=== PATIENT | male | born 1960 | race Caucasian/White ===

== ENCOUNTER 2024-07-24 09:19 | Emergency (ER) | payer MEDICAID ==
[~2024-07-24] VITALS: Ht 175.3 cm; Wt 65.9 kg
[~2024-07-24 09:19] MED LIST: NO HOME MEDS
--- NOTE | 2024-07-24 09:32 | Physician Documentation ---
History of Present Illness ~ Chief Complaint: Neck pain Stated Complaint: NECK/SHOULDER PAIN,TINGLING Time Seen by MD: 09:22 OK to notify your PCP?: Yes Primary Medical Doctor: vinicius Source: patient Mode of Arrival: POV Exam Limitations: no limitations HPI 63-year-old male with chief complaint left-sided neck pain which is worse when he looks to the left in his better when he massages his left shoulder left upper neck back area. He denies any history of injuries to his neck states he did break his left collar bone years ago but no injuries to his cervical spine. He denies any changes in his activity level prior to this. No pre arrival treatment. He describes the pain as pins and needles sensation. The pins and needle sensation radiates into the left arm. He denies chest pain, shortness of breath, clumsiness of his extremities or weakness. Medication Reconciliation Allergies: Coded Allergies: codeine (Verified Allergy, Unknown, 05/01/15) Scheduled Cyclobenzaprine* (Cyclobenzaprine*), 1 TAB PO HS Miscellaneous Medications Home Med List (No Home Medications), (Reported) Past Medical History Past Medical History: No Pertinent History Past Surgical History: no surgical history Drug Use: none Lives with: Spouse Lives In: Home Review of Systems All Other Systems at this time: Reviewed and Negative Physical Exam Vital Signs: Temperature: 98.0, Source: Temporal, Heart Rate: 71, Respiratory Rate: 16, BP: 125/91, Pulse Oximetry: 97, Weight: 65.900 Oxygen Flow Rate: 0 Physical Exam General Appearance: Alert, WD/WN. NAD. HEENT: NCAT, PERRL, EOMI. Neck: Supple, trachea midline. Cardiovascular: RRR. No m/r/g. Lungs: CTAB. Breathing unlabored Extremities: Normal inspection. No edema. Musculoskeletal: Tenderness over left paraspinal muscles of cervical spine, left SCM muscle, left trapezius muscle. No midline tenderness over spinous processes, active range motion of C-spine is reduced with looking to laterally due to pain on the left side of his neck. No tenderness over the left shoulder joint. Skin: Warm/dry, normal color Neurological: Alert and oriented x4, normal gait. Psychiatric: Affect congruent with mood. Progress Results/Orders Results/Orders Orders - STEFANO OLMEDO [facility] (07/24/24 09:27) Completed Orders - STEFANO OLMEDO [facility] (07/24/24 09:27) Vital Signs 07/24/24 07/24/24 09:21 10:55 Temp 98.0 98.0 Pulse 71 74 Resp 16 17 B/P (MAP) 125/91 128/59 Pulse Ox 97 97 O2 Flow Rate 0 Medical Decision Making Differential Dx:Considerations: Include: Cervical muscle spasm, Discitis, DJD, Meningitis, Thyroiditis, Torticollis, Vertebral artery dissect., Other Additional Comment Patient's pain is worse with particular movements and better with direct pressure to the muscles of the left side of the cervical spine and upper back area this coincides with a musculoskeletal problem. Patient had no precipitating injury and that is I figured that this was more of a degenerative situation or muscle spasm. I still ordered an x-ray of his cervical spine. I d id not feel it was necessary to pursue advanced imaging in the emergency room given the lack of radicular symptoms. Departure Time of Disposition: 10:48 Disposition: 01 HOME / SELF CARE / HOMELESS Impression: Primary Impression: Torticollis Additional Impression: Neck pain Condition: Stable Discharge Instructions: Acute Torticollis, Adult Additional Instructions: F/U WITH PCP WITHIN THE NEXT WEEK FINDINGS ON EXAM AND WITH YOUR HISTORY ARE CONSISTENT WITH MUSCLE SPASM RECOMMEND MUSCLE RELAXER, PHYSICAL THERAPY, TYLENOL AND/OR MOTRIN COPY OF CPSINE XRAY BELOW FINDINGS: VERTEBRAE: Mild reversal cervical spine lordosis. Degenerative facet arthropathy throughout the cervical spine. Normal alignment. No acute fracture. DISC SPACES: Degenerative disc disease throughout the cervical spine. SOFT TISSUES: Unremarkable. Referrals: NO PRIMARY CARE PROVIDER (PCP) Prescriptions Cyclobenzaprine* (Cyclobenzaprine*) 10 Mg Tablet 1 TAB PO HS for muscle spasms for 7 Days, #7 TAB 0 Refills Prov: STEFANO OLMEDO 07/24/24 Education Educated: Patient Educated regarding: diagnosis, treatment, need for follow up Signature Scribe Signature: X Attestation: STEFANO GARCIA Jul 24, 2024 09:32
--- NOTE | 2024-07-24 10:24 | RADIOLOGY REPORT ---
EXAM: XR Cervical Spine, 2 or 3 Views CLINICAL INDICATION: neck pain radiating into left shoulder TECHNIQUE: Frontal and lateral views of the cervical spine. COMPARISON: None FINDINGS: VERTEBRAE: Mild reversal cervical spine lordosis. Degenerative facet arthropathy throughout the ce rvical spine. Normal alignment. No acute fracture. DISC SPACES: Degenerative disc disease throughout the cervical spine. SOFT TISSUES: Unremarkable. OTHER FINDINGS: . IMPRESSION: 1. No acute fracture. 2. If symptoms persist, further evaluation with MRI is recommended. 3. Degenerative changes of the cervical spine as described.
[2024-07-24] MEDS ORDERED: CYCL-1 PO (10:48)
[2024-07-24 10:55] VITALS: BP 128/59; PULSE 74; RESP 17; TEMP 98; O2SAT 97
== END 2024-07-24 10:54 | disposition home or self-care (01) ==
LOC: ER 09:21
DX: M43.6 Torticollis (principal); M25.512 Pain in left shoulder; Z88.5 Allergy status to narcotic agent; Z79.899 Other long term (current) drug therapy
CPT/HCPCS: 72040; 99283

== ENCOUNTER 2024-07-29 15:54 | Inpatient (IN) | payer MEDICAID ==
[~2024-07-29] VITALS: Ht 175.3 cm; Wt 66.9 kg
[~2024-07-29 15:54] MED LIST changes: +CYCL-1 PO
[2024-07-29 15:59] VITALS: TEMP 98.1
--- NOTE | 2024-07-29 16:17 | Physician Documentation ---
History of Present Illness ~ Chief Complaint: Stroke Alert Stated Complaint: NUMBNESS Time Seen by MD: 17:10 Primary Medical Doctor: vinicius Source: patient HPI 63-year-old male presents to the emergency department complaining of left-sided upper and lower extremity weakness, patient states that his arm feels heavy as this his leg, symptoms started approximately six days ago, patient was seen in the emergency department this past week and diagnosed with a strain of his cervical spine and started on cyclobenzaprine however this did not improve his symptoms. Patient was seen by his primary care provider today and sent back to the ER for a stroke evaluation. Timing / Duration: days Onset: spontaneous Symptoms: weakness, numbness; Denies: slurred speech, difficulty talking History of: no pertinent history Weakness Location: none Associated Symptoms: denies symptoms Medication Reconciliation Allergies: Coded Allergies: codeine (Verified Allergy, Unknown, 05/01/15) Scheduled Hydroxyzine Hcl* (Atarax*), 1 TAB PO BID, (Reported) Oxcarbazepine (Oxcarbazepine), 1 TAB PO BID, (Reported) Miscellaneous Medications Home Med List (No Home Medications), (Reported) Discontinued Medications Cyclobenzaprine* (Cyclobenzaprine*), 1 TAB PO HS Discontinued Reason: patient no longer taking Past Medical History Past Medical History: No Pertinent History Past Surgical History: no surgical history Drug Use: none Lives with: Spouse Lives In: Home Review of Systems Constitutional: Reports: see HPI Neurological: Reports: see HPI, left sided weakness Physical Exam Vital Signs: RN Vital Signs have been reviewed: Yes, Temperature: 98.1, Source: Oral, Heart Rate: 82, Respiratory Rate: 16, BP: 126/85, Pulse Oximetry: 92, Weight: 66.900 Oxygen Flow Rate: 0 General Appearance: alert, WD/WN, no apparent distress Pupils/EOM/Fundus: PERRLA, EOM intact Neck: normal inspection, full range of motion, supple, tender lateral; No: non- tender Respiratory: lungs clear, normal breath sounds, no respiratory distress Chest: no accessory muscle use, chest non-tender Cardiovascular: normal peripheral pulses, regular rate, rhythm, no edema Orientation / Memory / CN Exam: oriented x3 Motor / Sensory: no motor deficit, no sensory deficit, no pronator drift Psychiatric: appropriate Progress Results/Orders Results/Orders Orders - HAN MARSH DO Monitor (6/12/25 16:07) 2 Large Bore Ivs (07/29/24 16:07) Chest,Single View (07/29/24 16:30) Accucheck (07/29/24 16:07) Ct Stroke Alert (07/29/24 16:07) Davis Prov.Neuro Consult (07/29/24 16:07) Page Hospitalist (07/29/24 17:31) Fill Out Med Reconciliation (07/29/24 17:31) Completed Orders - HAN MARSH DO Cbc/Diff (07/29/24 16:07) Electrocardiogram (07/29/24 16:07) Chest,Single View (07/29/24 16:30) Ct Stroke Alert (07/29/24 16:07) BMP (07/29/24 16:07) PTT (07/29/24 16:07) Pt Inr (07/29/24 16:07) Vital Signs 07/29/24 07/29/24 07/29/24 15:59 17:37 17:39 Temp 98.1 Pulse 82 62 Resp 16 17 15 B/P (MAP) 126/85 121/68 (85) Pulse Ox 92 98 O2 Flow Rate 0 0 Laboratory Tests Test 07/29/24 16:06 07/29/24 16:19 Glucometer 132 H White Blood Count 7.0 Red Blood Count 4.66 L Hemoglobin 14.2 Hematocrit 41.9 L Mean Corpuscular Volume 89.8 Mean Corpuscular Hemoglobin 30.4 Mean Corpuscular Hemoglobin Concent 33.9 Red Cell Distribution Width 14.3 Platelet Count 302 Mean Platelet Volume 8.1 Neutrophils (%) (Auto) 68.2 Lymphocytes (%) (Auto) 20.5 L Monocytes (%) (Auto) 8.0 Eosinophils (%) (Auto) 2.7 Basophils (%) (Auto) 0.6 Neutrophils # (Auto) 4.7 Lymphocytes # (Auto) 1.4 Monocytes # (Auto) 0.6 Eosinophils # (Auto) 0.2 Basophils # (Auto) 0.0 CBC Comment Prothrombin Time 9.9 INR International Normalized Ratio 1.0 Activated Partial Thromboplast Time 28 Coagulation Comments Sodium Level 144 Potassium Level 4.6 Chloride Level 106 Carbon Dioxide Level 29.1 Anion Gap 9 Blood Urea Nitrogen 19 H Creatinine 1.12 H Estimated GFR/1.73 m2 66 BUN/Creatinine Ratio 17.0 Glucose Level 123 H Calcium Level 8.8 Albumin 3.7 Chemistry Comments Re-Evaluation Re-Evaluation : Progress 5:20 p.m., patient was evaluated by tele neuro, plan was to admit the patient to the hospital to complete stroke workup including MRI of the brain and echo cardiogram the patient continues to have a sensation of heaviness on his left side, there is no other focal neuro deficits identified on examination. Plan will be the call Hospital Medicine for admission 5:40 p.m. discussed case with hospital medicine they will evaluate the patient for admission for further workup including MRI and echocardiogram. EKG/XRAY/CT/US/VASC/MRI EKG : Additional Comment Sinus rhythm rate of 75 normal axis, possible left atrial enlargement otherwise normal EKG. Chest X-Ray : Additional Comments [address] [address] DIAGNOSTIC RADIOLOGY Patient: EZEQUIEL WLAL Medical Record: [id number] [facility] : 1960, Age: 63 Sex: Male Location: ER Patient Status: [facility] ER Service Date/Time: 07/29/241629 Ordering Physician: HAN MARSH DO Exam: CHEST,SINGLE VIEW CHEST RADIOGRAPH Indication: Stroke Alert Technique: Single frontal view of the chest was obtained Comparison: None FINDINGS: The cardiac silhouette is unremarkable. The lungs demonstrate no pulmonary airspace consolidation. The pulmonary vasculature is unremarkable. There is no pleural effusion.. There is no pneumothorax. IMPRESSION: 1. No pulmonary airspace consolidation. Electronically Signed by:EMMANUEL RIVAS MD Date & Time: 07/29/241649 Dictated by: EMMANUEL RIVAS MD Dictation date and time: 06/12/25 1650 Primary Care Provider: NO PRIMARY CARE PROVIDER cc: HAN MARSH DO ~ CT : Impression [facility] [address] [facility] [address] CAT SCAN Patient: EZEQUIEL WALL Medical Record: [id number] [facility] : 1960, Age: 63 Sex: Male Location: ER Patient Status: [facility] ER Service Date/Time: 07/29/241606 Ordering Physician: HAN MARSH DO Exam: CT STROKE ALERT CT CT STROKE ALERT INDICATION: Stroke Alert COMPARISON: None TECHNIQUE: CT of the head without intravenous contrast. RADIATION DOSE: CTDIvol: 56 mGy, DLP: 1023 mGy*cm FINDINGS: There is no evidence of acute intracranial hemorrhage, extra-axial collection, mass effect, midline shift, herniation or hydrocephalus. The ventricles, sulci and cisterns are age appropriate. The clements-white differentiation is intact. The visualized paranasal sinuses and mastoid air cells are clear. The surrounding soft tissues and osseous structures are unremarkable. IMPRESSION: 1. No evidence of acute intracranial hemorrhage, mass effect or hydrocephalus. Electronically Signed by:CRISTOPHER TERRY MD Date & Time: 07/29/241625 Dictated by: CRISTOPHER TERRY MD Dictation date and time: 07/29/241625 Primary Care Provider: NO PRIMARY CARE PROVIDER cc: HAN MARSH DO ~ Heart Score: Heart Score Response (Comments) Value History N/A 0 EKG N/A 0 Age N/A 0 Risk Factors N/A 0 Troponin N/A 0 Total 0 Medical Decision Making Differential Dx:Considerations: Include: CVA, Drug overdose, Electrolyte imbalance, Hypoglycemia, Mass lesion, TIA Departure Disposition: ADMITTED INPATIENT Admitted to Inpatient Unit: to hospitalist Impression: Primary Impression: Cerebral infarction Referrals: NO PRIMARY CARE PROVIDER (PCP) Additional Comment Medical Screen Exam History: This is a 63-year-old male who presents from his primary care provider's office due to six days of left-sided facial numbness extending into his neck with a feeling of arm heaviness Exam: VITALS: Reviewed and as above. GENERAL: Alert, nontoxic appearing, no apparent distress. RESPIRATORY: No increased work of breathing, no respiratory distress, speaking in full clear sentences NEURO: Moving bilateral upper limbs equally, no facial droop MSE performed in triage and patient promptly taken to CT, neurologic exam limi kassandra by nursing staff obtaining blood glucose and lab studies along with the patient being taken to CT prior to full neuro exam, patient's otherwise well- appearing and hemodynamically stable. Patient returned to ED lobby by nursing staff to await available ED room. The note accurately reflects work and decisions made by me.LEMUEL Kessler 07/29/24 16:17 Signature Scribe Signature: none Attestation: Dictated by myself SETH FRANCO Jul 29, 2024 16:17 HAN MARSH DO Jul 29, 2024 17:36
--- NOTE | 2024-07-29 16:21 | ELECTROCARDIOGRAPH REPORT ---
[facility] Test Date: 2024-07-29 Test Time: 16:17:31 Pat Name: EZEQUIEL WALL Department: EMERGENCY ROOM Room: Gender: M Field Placement Director: TIESHA : 1960 Requested By: HAN MARSH Order Number: [id number] Reading MD: Measurements Intervals Bartley Rate: 75 P: 83 HI: 135 QRS: 77 QRSD: 87 T: 45 QT: 390 QTc: 436 Interpretive Statements Sinus rhythm Probable left atrial enlargement Baseline wander in lead(s) I Please click the below link to view image of tracing.
[2024-07-29 16:27] LABS: BASOPHILS % (AUTO) 0.6 % (0-1); EOSINOPHILS # (AUTO) 0.2 X10'3 (0-0.9); EOSINOPHILS % (AUTO) 2.7 % (0-6); HEMATOCRIT 41.9 % (42.0-52.0); HEMOGLOBIN 14.2 g/dl (14.0-17.9); LYMPHOCYTES # (AUTO) 1.4 X10'3 (1.1-4.8); LYMPHOCYTES % (AUTO) 20.5 % (21-51); MEAN CORPUSCULAR HEMOGLOBIN 30.4 PG (27.0-31.0); MEAN CORPUSCULAR HGB CONC 33.9 g/dL (33.0-36.5); MEAN CORPUSCULAR VOLUME 89.8 FL (78-98); MEAN PLATELET VOLUME 8.1 FL (7.4-10.4); MONOCYTES # (AUTO) 0.6 X10'3 (0-0.9); NEUTROPHILS # (AUTO) 4.7 X10'3 (1.8-7.7); NEUTROPHILS % (AUTO) 68.2 % (42-75); PLATELET COUNT 302 X10'3 (140-440); RED BLOOD COUNT 4.66 X10'6 (4.70-6.10); RED CELL DISTRIBUTION WIDTH 14.3 % (11.5-14.5)
--- NOTE | 2024-07-29 16:28 | RADIOLOGY REPORT ---
CT CT STROKE ALERT INDICATION: Stroke Alert COMPARISON: None TECHNIQUE: CT of the head without intravenous contrast. RADIATION DOSE: CTDIvol: 56 mGy, DLP: 1023 mGy*cm FINDINGS: There is no evidence of acute intracranial hemorrhage, extra-axial collection, mass effect, midline s hift, herniation or hydrocephalus. The ventricles, sulci and cisterns are age appropriate. The clements -white differentiation is intact. The visualized paranasal sinuses and mastoid air cells are clear. The surrounding soft tissues and osseous structures are unremarkable. IMPRESSION: 1. No evidence of acute intracranial hemorrhage, mass effect or hydrocephalus.
[2024-07-29 16:45] LABS: APTT 28 SECONDS (22-32); PROTHROMBIN TIME 9.9 SECONDS (9.0-12.0)
[2024-07-29 16:53] LABS: ALBUMIN 3.7 G/DL (3.4-5.0); ANION GAP 9 (8-16); BLOOD UREA NITROGEN 19 MG/DL (7-18); CALCIUM 8.8 MG/DL (8.5-10.1); CHLORIDE 106 MMOL/L (99-107); CREATININE 1.12 MG/DL (0.60-1.10); GLUCOSE 123 MG/DL (70-104); POTASSIUM 4.6 MMOL/L (3.5-5.1); SODIUM 144 MMOL/L (135-145); TOTAL CARBON DIOXIDE 29.1 MMOL/L (24-32); eCRCL 65 ML/MIN; eGFR 66 ML/MIN
--- NOTE | 2024-07-29 16:53 | RADIOLOGY REPORT ---
CHEST RADIOGRAPH Indication: Stroke Alert Technique: Single frontal view of the chest was obtained Comparison: None FINDINGS: The cardiac silhouette is unremarkable. The lungs demonstrate no pulmonary airspace consolidation. Th e pulmonary vasculature is unremarkable. There is no pleural effusion.. There is no pneumothorax. IMPRESSION: 1. No pulmonary airspace consolidation.
[2024-07-29 17:39] VITALS: BP 121/68
[2024-07-29] MEDS ORDERED: HYDR-3686 PO (17:41)
[2024-07-29] MEDS ORDERED: OXCA150T14 PO (17:41)
[2024-07-29] MEDS: clopidogrel 75mg tablet PO SCH (18:30)
[2024-07-29] MEDS ORDERED: hydrALAZINE 20mg/ml inj. IV PRN (18:30)
[2024-07-29] MEDS ORDERED: acetaminophen 325mg tablet PO PRN (18:30)
[2024-07-29] MEDS ORDERED: normal saline 1000ml 1,000 ML IV SCH (18:30)
[2024-07-29] MEDS: aspirin 325mg tablet, delayed-release (Ecotrin) PO ONE (18:37)
[2024-07-29] MEDS: PERFLUTREN PROTEIN-A MICROSPHR (Optison) 0.22 MG/ML 3ML VIAL IV ONE (18:38)
[2024-07-29] MEDS ORDERED: nicotine 14mg patch - 24hr TD PRN (18:40)
[2024-07-29] MEDS ORDERED: ipratropium/albuterol 3ml nebule NEB PRN (18:40)
--- NOTE | 2024-07-29 18:52 | HISTORY AND PHYSICAL-Residence ---
History & Physical Providers to CC Resident Creating Document: JAIMILA RES ~ History of Present Illness Primary Medical Doctor: JORDON REYES IN Reason for Admit\Complaint: Left UMNL CVA History of Present Illness A 63 years old male with a past medical history of HLD and Right knee surgery and tonsillectomy, presented with left-sided facial and neck tingling and pain over 4-5 weeks which was getting worse along with left-sided upper and lower extremities weakness and blurred vision, slurred speech over six days ago. Pt is currently on the new live program for the sober program of his meth usage hx, and currently living at the [facility] arranged by his program. He has a PCP at the [facility] in clinic who sent him to ER for the stroke work up. He dose not drive and he describes himself a previous healthy man. He started having the tingling and painful sensation over his left neck and face since 4-5 weeks ago which was intermittent and he attributed that as over working and abnormal sleep pattern, which is progressive and getting worse since last Friday and started noticing about the Left UL and LL weakness with dropping of cup and heavy sensation on last Friday. He do notice that he has a blurred vision on his left eye vision even on the corrective lens glasses. His girlfriend started noticing that he has a weird funny speech on last Friday. It is his first time experience, denies any other associated dizziness, lightheadedness, syncope, dysphagia and aspiration, nausea and vomiting, chest pain/pressure/discomfort, palpitations, seizure-like activity, and loss of bowel or bladder controlled function. He recently visited to our ER for left-sided facial and neck pain with a tingling sensation which was treated with cyclobenzaprine for the possible torticollis diagnosis and discharged home. He could walk without using any aids. Allergies: Coded Allergies: codeine (Verified Allergy, Unknown, 05/01/15) Home Medications Home Medications Active Reported Oxcarbazepine 150 Mg Tablet 1 Tab PO BID Atarax* (Hydroxyzine HCl) 25 Mg Tablet 1 Tab PO BID No Home Medications (Home Med List) Each Past Medical History Past Medical History HLD Past Surgical History Surgical History Comment Right knee surgery and tonsillectomy Past Social History Social History Comment Pt is currently on the new live program for the sober program of his meth usage hx, and currently living at the [facility] arranged by his program. He has a PCP at the [place] [facility] who sent him to ER for the stroke work up. He dose not drive and he describes himself a previous healthy man. He usually walks without having any walking aids. 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 He denies using any other illicit drugs. He is currently smoking a pack of cigarettes over 3-4 days, last time smoking was this morning, he used to smoke half a pack of cigarettes per day before. Smoking: Cigarettes Drug Use: None Lives with: Spouse Lives In: Home ROS ROS ROS were reviewed WNL except for the above-mentioned in HPI Constitutional: Reports: see HPI Neurological: Reports: see HPI, left sided weakness Exam Vitals: Vital Signs Date Time Temp Pulse Resp B/P (MAP) Pulse Ox O2 Delivery O2 Flow Rate FiO2 07/29/24 17:39 62 15 121/68 (85) 98 0 07/29/24 15:59 98.1 General: General: Well alert, well oriented, not confused, not agitated, not in acute distress, well cooperated during the physical. HEENT: HEENT: Conjunctive are pink, sclerae clear, no icterus, pupil is equal in both sides, reactive to light, no ear discharge, no pharyngeal erythema or an edema, mouth and lips are dry Neck: Neck: Supple, no JVD, no lymphadenopathy and thyromegaly. Chest: Lungs:Equal air entry on both lungs, no additional sounds Cardiovascular: Heart: S1-S2 regular sinus rhythm and, regular rate, no gallops, no rubs, no murmurs Abdomen: Abdomen: No visible peristalsis, Bowel sounds present on auscultation, soft, nontender, no guarding, no rigidity Extremities: Extremities: No obvious deformities, no pitting edema bilaterally, capillary refill intact, able to wiggle toes both sides, peripheral pulsations are intact on both sides Central Nervous System: Neurology: No ophthalmoplegia, blurred vision on the left-sided temporal vision field, no nystagmus. Loss of forehead wrinkles on left forehead, could not resist forced against to open the eyelid on left side, left-sided angle of the mouth drooping with slurred speech detected, strangely deviation of the tongue to the right side on protrusion with some muscular atrophy on the left-sided tongue. No pronator drift bilateral, left-sided weakness on handgrips. Motor tone and power: Left UL and LL- 4/5, could move all 4 extremities, bilateral U/L and LL normal motor tone Sensory: No abnormal Extensor plantar response and DTR: Normal flexor on right side, equivocal on left side, normal right biceps and triceps, ankle knee DTR 2+/4, 3/5 on left Musculoskeletal: Musculoskeletal: No joint swelling, deformities, inflammations, and no scoliosis and back tenderness Skin: Skin: No active skin lesions and rashes Diagnostic Data Last Recorded Lab Results: 07/29/24 1619 07/29/24 1619 Diagnostic Data: Laboratory Tests Test 07/29/24 16:19 Prothrombin Time 9.9 SECONDS (9.0-12.0) INR International Normalized Ratio 1.0 INR Activated Partial Thromboplast Time 28 SECONDS (22-32) Coagulation Comments Counseling Services Smoking & Tobacco Cessation: > 10 Minutes Advance Care Planning Advanced Care plannin - 30 Minutes Additional Plan A 63 years old male with a past medical history of HLD and Right knee surgery and tonsillectomy, presented with left-sided facial and neck tingling and pain over 4-5 weeks which was getting worse along with left-sided upper and lower extremities weakness and blurred vision, slurred speech over six days ago. # CVA, possible Left UMNL -CT head W/O IV contrast on 07/29/2024 showed No evidence of acute intracranial hemorrhage, mass effect or hydrocephalus. -CXR: No pulmonary airspace consolidation. -RBS on arrival 123, pending UA and urine toxicology -ER physician started loading dose of aspirin 325 mg one time with PO clopidogrel 75 mg, f/ by PO ASA 81 mg and PO Clopidogrel 75 mg up to 21 days and f/by mono antiplt therapy as a choice. -consulted with tele neuro, appreciate it and pending Neurology report -continue neuro monitoring, pending MRI head, Doppler bilateral carotid, 2D echocardiogram, consult with Neurology for abnormal findings -allow permissive blood pressure with BP 220/120 since he is not a good candidate for thrombolysis, over goal targeted therapy window of 4.5 hours, to prevent any superimposed ischemic stroke, IV Hydralazine as prescribed, and control the BP if more than 48 hours of admission ( Targeted SBP <180 and DBP >140) -NPO until bedside test pass, ST eval and OT PT -Neuro monitoring, and consult tele neuro again for the any changes -Prevent the DVT in the CVA pt brendan 48 hrs of event/ admission who are ath the higher risk of thrombosis during the admission, SC Heparin 5000 units BID and SCD s until fully ambulatory -LDL should be below 70 for 2' prevention of stroke in the future with the low dosage of the high to moderate intensity anti Lipid PO Atorvastatin 20 mg, educated and discussed for that. -Bowel care with the stool softner p.o. docusate 100 mg b.i.d. and prevent the bowel strain to reduce the ICP to prevent the hemorrhagic stroke -PT eval plays a role for post stroke residual motor deficits and return back to normal with the rapid recovery. -F/up with lipid panel and TSH and HbA1C # HLD -started p.o. atorvastatin 20 mg, we will titrate up according to LDL level results and educated about the substance abuse consequences of CVA hypertension heart attack etc. -targeted goal LDL should be less than 70 # substance abuse history(methamphetamine, tobacco, alcohol, marijuana) -sober for five months, pending drug screen -we will consider for substance navigation and administrator social welfare if needed CODE STATUS: Full code DVT prophylaxis: Sc heparin 5000 units b.i.d. Analgesia/sedation: IV morphine as needed Lines/tubes: PIV GI prophylaxis: Protonix Nutrition: NPO until swallow test past, heart healthy diet Prognosis: Guarded Disposition: F/up pending investigations for stroke, consult with Neurology if necessary, Continue postop care, IV fluids, PT/ST/OT, bedside swallow test, permissive hypertension, DAPT, PT eval and DC plan. Resident MD attestation: Patient was seen, examined and discussed with attending , Dr. Momo VERGARA MD Internal Medicine Resident, PGY2 [facility] Date of Service: Jul 29, 2024 Billing Provider: VINOD AGUILA MD,MILA, RES Jul 29, 2024 18:52
[2024-07-29 19:11] LABS: HEMOGLOBIN A1C 5.6 % (4.5-6.2)
--- NOTE | 2024-07-29 19:14 | [facility] CONSULT REPORT ---
[facility] Procedure Note [facility] Procedure Note Consult [facility] Note # Demographics Consult Type: Acute Stroke Level 2 (4.5-24 hrs) Patient Location: Emergency Room First Name: EZEQUIEL Last Name: MAE Gender: Male Facility: [facility] Time of Initial Page (): 07/29/2024 16:48 Time of Return Call (): 07/29/2024 16:48 # HPI Chief Complaint: - weakness (focal) - numbness History: 63 yo M p/w L facial/neck/arm tingling sensation and L arm/leg heaviness since last Friday. He also reported L eye blurry vision his whole visu al field, but still able to see. Last Known Normal: Last Friday # Scores Time of exam and NIHSS (): 07/29/2024 16:56 Level of Consciousness 1a: [0] = Alert; keenly responsive LOC Questions 1b: [0] = Answers both questions correctly LOC Commands 1c: [0] = Performs both tasks correctly Best Gaze 2: [0] = Normal Visual 3: [0] = No visual loss Facial Palsy 4: [0] = Normal symmetrical movements Motor Arm Left 5a: [1] = Drift Motor Arm Right 5b: [0] = No drift Motor Leg Left 6a: [0] = No drift Motor Leg Right 6b: [0] = No drift Limb Ataxia 7: [0] = Absent Sensory 8: [1] = Wjyx-lt-hgleitax sensory loss Best Language 9: [0] = No aphasia Dysarthria 10: [0] = Normal Extinction and Inattention 11: [0] = No abnormality NIHSS Total: 2 # ROS Additional: - complete review of systems otherwise negative # PMH-FH-SH Past Medical History: - bipolar - hyperlipidemia # Data Head CT: - no bleed - preliminarily reviewed by me, please refer to radiology read for official reading # Assessment Impression: - Ischemic Stroke (Acute) # Plan Thrombolytic/Intervention: NOT IV Thrombolysis or IA Intervention candidate Thrombolytic Exclusion: > 4.5 hours Intraarterial Exclusion: - Clinically not c/w large vessel occlusion (LVO) Labs: - hemoglobin A1c - lipid panel - troponin Imaging: (urgency: routine): - CTA head and neck with contrast - MRI Brain without contrast Diagnostic Test: - echo without bubble study Therapy/Evaluation: - NPO until swallow evaluation - PT/OT evaluation - speech/swallow consultation Medication: - aspirin 81 mg PLUS clopidogrel (Plavix) 75 mg for 21 days, then monotherapy therafter Other: - If patient has any neurological deterioration please call me back immediately - telemetry monitoring - LDL < 70 - I have discussed my recommendations with the referring provider # Logistics Attestation of consult completion: The patient is located at: [facility]. Facility staff participated in the visit. I performed this telemedicine visit from my offsite office utilizing interactive 2 way audio and visual telecommunication technology. Total time spent in telemedicine encounter: I spent 23 minutes reviewing clinical data and/or imaging, obtaining history, examining the patient, communicating with the onsite care team, and in preparation of this report. # Demographics First Name: EZEQUIEL Last Name: MAE Facility: [facility] Electronically signed at 07/29/2024 19:13 ([place] Time) by Kasia Mckee MD Neuro Consult Order placed for: Yes KASIA MCKEE MD Jul 29, 2024 19:14
[2024-07-29 19:51] LABS: OSMOLALITY 296 MOSM/K (280-300)
[2024-07-29 19:52] LABS: THYROID STIMULATING HORMONE 1.86 ulU/ml (0.34-4.50)
[2024-07-29 19:53] LABS: PRO BRAIN NATRIURETIC PEPTIDE < 30 PG/ML (0-125)
[2024-07-29 19:59] VITALS: PULSE 67; RESP 16; O2SAT 99
[2024-07-29] MEDS: heparin, porcine 5000 units/ml vial SQ SCH (20:00)
[2024-07-29] MEDS: docusate sod 100mg capsule PO SCH (20:00)
--- NOTE | 2024-07-30 04:26 | RADIOLOGY REPORT ---
[facility] MR MRI HEAD INDICATION: CVA Left [facility] COMPARISON: CT scan of the head dated 07/29/2024 TECHNIQUE: Multiplanar, multisequence magnetic resonance imaging of the brain was performed without the use of i ntravenous contrast. FINDINGS: No evidence of acute or remote infarct. No intracranial hemorrhage. No mass effect. The ventricles and sulci are normal in size for age. Clear basal cisterns. Flow voids in the major intracranial vessels are maintained. No abnormality of the orbits. Paranasal sinuses and mastoid air cells are clear. No abnormality of the visualized osseous structures and extracranial soft tissues. IMPRESSION: 1. No acute infarct, intracranial hemorrhage, mass effect, or hydrocephalus.
[2024-07-30] MEDS ORDERED: pantoprazole 40mg Tablet.DR PO SCH (07:30)
[2024-07-30] MEDS ORDERED: aspirin 81mg, enteric-coated 1 TAB TABLET.DR PO SCH (08:00)
[2024-07-30] MEDS ORDERED: atorvastatin 20mg tablet PO SCH (08:00)
== END 2024-07-29 22:39 | disposition left against medical advice (07) | DRG 58 ==
LOC: ER 15:55 → ED HOLD 17:45
PROVIDERS: ADMIT Family Medicine; ATTEND Family Medicine
DX: R20.0 Anesthesia of skin (principal); E78.5 Hyperlipidemia, unspecified; R51.9 Headache, unspecified; Z53.21 Procedure and treatment not carried out due to patient leaving prior to being seen by health care provider; Z88.5 Allergy status to narcotic agent; Z79.899 Other long term (current) drug therapy
CPT/HCPCS: 36415; 70450; 70551; 71045; 80048; 82948; 83036; 83880; 83930; 84443; 85025; 85610; 85730; 93005; 94760; G0378